=== PATIENT | female | born 1995 | race Caucasian/White ===

== ENCOUNTER 2021-04-27 15:40 | Emergency (ER) | payer BC ==
[~2021-04-27] VITALS: Ht 157.5 cm; Wt 59.0 kg
[2021-04-27] MEDS ORDERED: UNISOM25 MG PO (15:53)
[2021-04-27] MEDS ORDERED: VITAMIN B6100 MG/2.5 PO (15:53)
[2021-04-27] MEDS ORDERED: ENBRACE HR SOF1 EACH PO (15:53)
[2021-04-27 16:22] LABS: HEMATOCRIT 40.2 % (37.0-47.0); HEMOGLOBIN 13.5 gm/dL (12.0-15.0); MCH 29.7 pg (26.0-34.0); MCHC 33.5 g/dL (28.0-37.0); MCV 88.6 fL (80.0-100.0); MPV 10.3 fl. (7.2-11.1); RBC 4.54 mil/uL (4.20-5.00); RDW-CV 13.1 % (10.5-14.5); WBC 10.9 thou/uL (4.0-11.0)
[2021-04-27 16:26] LABS: CALCIUM 9.5 mg/dL (8.5-10.1); CREATININE 0.8 mg/dL (0.6-1.3); POTASSIUM 3.8 mmol/L (3.5-5.1)
--- NOTE | 2021-04-27 16:26 | EKG ---
[place] [address] ELECTROCARDIOGRAM REPORT Name: BALTA DANIEL Room: [facility]#: [id number] Admission: 04/27/21 Attend Phys: Discharge: Date of : 89 Date of Service: 04/27/21 1610 Report #: [id number] THIS REPORT FOR: //name// [facility] ED Test Date: 2021-04-27 Test Time: 16:10:58 Pat Name: BALTA DANIEL Department: Room: Gender: F Rd Lab Technician: : 1995 Requested By: Luca Avendaño Order Number: [id number] MD: Delano Perez Measurements Intervals [place] Rate: 152 P: 76 NV: 119 QRS: 39 QRSD: 87 T: -18 QT: 271 QTc: 431 Interpretive Statements Sinus tachycardia Ventricular premature complex Consider right atrial enlargement Low voltage, precordial leads Borderline repol abnormality, diffuse leads Artifact in lead(s) I,II,III,aVR,aVL,aVF No previous ECG available for comparison Electronically Signed On 04-27-2021 16:26:38 CDT by Delano Perez [email or web address] <ELECTRONICALLY SIGNED> By: Delano Perez MD, FACC 04/27/21 1626 1610 1610 Delano Perez MD, FAC /EPI
[2021-04-27] MEDS ORDERED: FAMOTIDINE20 MG PO (16:38)
[2021-04-27] MEDS ORDERED: EPIPEN 2-P0.3 MG/0.3 IM (16:38)
[2021-04-27 17:16] VITALS: BP 138/69
== END 2021-04-27 17:16 | disposition home or self-care (01) ==
LOC: M.ERS 15:40
PROVIDERS: Emergency Medicine Emergency Medical Services
DX: O26.891 Other specified pregnancy related conditions, first trimester (principal); R21 Rash and other nonspecific skin eruption; T78.49XA Other allergy, initial encounter; Z3A.08 8 weeks gestation of pregnancy; X58.XXXA Exposure to other specified factors, initial encounter